=== PATIENT | female | born 1990 | race Two or more races ===

== ENCOUNTER → 2024-10-13 | Outpatient (CLI) | payer BC, SELFPAY | END | disposition home or self-care (01) | PROVIDERS: PCP Nurse Practitioner Family; Referring Provider Nurse Practitioner Family; Visit Provider Nurse Practitioner Family | DX: N39.0 Urinary tract infection, site not specified (principal); N77.1 Vaginitis, vulvitis and vulvovaginitis in diseases classified elsewhere | CPT/HCPCS: 87077; 87086; 87186 ==

== ENCOUNTER 2024-10-17 14:48 | Outpatient (AMB) | payer BC, SELFPAY ==
[2024-10-17 15:10] VITALS: BP 111/65; PULSE 95; RESP 18; TEMP 36.8; O2SAT 99; BMI 26.8
--- NOTE | 2024-10-17 15:10 | AMB.GYNCLNOT ---
Vital Signs 10/17/24 15:10 Height 1.65 m Height Method Stated Weight 73.028 kg Weight Measurement Method Standing Scale BMI 26.8 BP 111/65 Blood Pressure Source Automatic Cuff Blood Pressure Location Left Upper Arm Position Sitting Respiration 18 Pulse 95 Pulse Source Monitor Temp 98.2 F Temp Source Oral Pulse Oximetry (%) 99 Oxygen Delivery Method Room Air Allergies/Home Meds Allergies & Medications Allergies NKA* Allergy (Uncoded 10/17/24 15:11) Medication Reconciliation No Known Home Medications 10/17/24 [History Confirmed 10/17/24] Intake Visit Data Collection New Patient or Established: New Patient (never been to [facility] [place]) Reason for Visit:: Discuss tubal ligation Seen by Clinical Staff ONLY (RN/MA): No 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 Do You Feel Safe at Home: Yes Authorities Contacted: N/A PCP or OBGYN visit in last 3 months: No Hx Now: No Are you currently on any form of Control: Yes Pain Present Currently: No Pain Scale Used: John-Montero/Numerical Pain scale:: 0 Smoking Status Smoking Status: Never smoker Patrol Lady history Patrol Lady History Menstrual regularity: regular Flow: normal Monthly: Yes Age at menarche: 13 Menopausal: No Currently sexually active: Yes Questionnaires Covid-19 Vaccine Questionnaire Has patient been vacinated for Covid-19 Have you been vacinated for Covid-19: Yes PHQ-9 PHQ-2 Over the last 2 weeks, how often have you been bothered by any of the following problems? 1. Little interest or pleasure in doing things: not at all 2. Feeling down, depressed, or hopeless: not at all Total score: 0 PHQ-9 3. Trouble falling or staying asleep, or sleeping too much: Not at all 4. Feeling tired or having little energy: Not at all 5. Poor appetite or overeating: Not at all 6. Feeling bad about yourself - or that you are a failure or have let yourself or your family down: Not at all 7. Trouble concentrating on things, such as reading the newspaper or watching television: Not at all 8. Moving or speaking so slowly that other people could have noticed? - Or the opposite - being so fidgety or restless that you have been moving around a lot more than usual: not at all 9. Thoughts that you would be better off or of hurting yourself in some way: Not at all Total score: 0 If you checked off any problems, how difficult have these problems made it for you to do your work, take care of things at home, or get along with other people?: not difficult at all Source: Developed by Drs. Nehemiah Perez, Tiara Cuadra, Taiwo Sims and colleagues, with an educational maria del carmen from [employer]. Depression screen completed yes Social History Tobacco History Smoking Status: Never smoker Domestic Abuse History Do You Feel Safe at Home: Yes Past Medical History Past Medical History Have you ever been diagnosed with any of the following: History of Present Illness HPI Narrative Rona Hathaway presents to discuss tubal ligation for permanent sterilization. The patient expresses interest in the procedure and seeks comprehensive information about the process. Ms. Hathaway reports a history of a cyst on her left ovary, which she believes is no longer present as she is not experiencing any pain. She currently has an intrauterine device (IUD) in place. The patient inquires about the potential effects of the tubal ligation on her estrogen levels and hormonal balance. She has no prior history of surgeries such as C-sections. The patient demonstrates a willingness to proceed with the tubal ligation, understanding that it is a permanent and irreversible method of sterilization. She is receptive to the recommended laparoscopic salpingectomy approach and the associated benefits, including reduced risk of ectopic and decreased lifetime risk of ovarian cancer. Medical History - Ovarian cyst on left ovary (resolved) Surgical History - Ovarian cyst on left ovary (resolved) - IUD placement Medications and Supplements - IUD Social History - Occupation: Patient is employed (inferred from mention of returning to work) - Family Planning: Patient is seeking permanent sterilization via tubal ligation - Reproductive Health: Currently has an IUD Review of Systems Genitourinary: Negative for pain related to ovarian cyst. Review of Systems Review of Systems Systems Reviewed: All systems reviewed, normal except as documented Exam General Limitations: no limitations General Appearance: alert, in no apparent distress, comfortable, cooperative, healthy appearing, well developed and well groomed Head Head exam: atraumatic, normocephalic and normal inspection Chest Chest inspection: Present normal inspection and symmetric chest wall rise Abdominal Abdominal exam: Present soft and normal bowel sounds Psych Psychiatric exam: Present normal affect and normal mood Skin Skin exam: Present warm, dry, intact and normal color Assessment & Plan Diagnosis / Problem List (1) Encounter for sterilization: Status: Acute Plan Rona Hathaway, female patient, presenting to discuss tubal ligation for permanent sterilization. History of ovarian cyst on left ovary, currently asymptomatic. Has an IUD in place. Desire for permanent sterilization Assessment: Patient is seeking tubal ligation for permanent contraception. She has limited knowledge about the procedure and its effects. The recommended method is a laparoscopic bilateral salpingectomy, which involves complete removal of both fallopian tubes. This approach not only provides permanent sterilization but also reduces the risk of future ectopic and ovarian cancer. The patient's history of an ovarian cyst on the left ovary is noted, but it appears to be resolved as it is currently asymptomatic. The patient has an IUD in place, which will be removed during the surgery. Plan: - Perform laparoscopic bilateral salpingectomy for permanent sterilization - Outpatient procedure under general anesthesia - One incision in umbilicus, two on sides (each approximately 0.5 cm) - Estimated total time at hospital: 3-4 hours - Remove IUD during the procedure - Provide PM330 consent form for patient to sign - Explain 30-day mandatory waiting period before surgery - Obtain insurance authorization for the procedure - Intraoperative evaluation of ovaries, with attention to left ovary for previous cyst - Take intraoperative pictures to show patient post-procedure - Advise patient on post-operative expectations: - Day of surgery: sleepiness and soreness - Next day: begin to feel more normal - Two days post-op: can return to work and regular activities - Educate patient: - Procedure is permanent and irreversible - No effect on hormones or menstrual cycle - Reduced risk of future ovarian cancer Office Procedures OB Clinic LOC & Office Proc's Nursing/Assessment Patient Status: Established Patient OB Clinic Nursing Assessment: BP Monitoring, Medication Reconciliation, Update PMH in EMR and Vital Signs OB Clinic Coordination of Care: Complex Care and Chronic Disease 1-5, Consent,records obtained, informed consent, Education Simp Pt/Fam, Lab and Imaging orders and Staff clarify orders Established Patient Charge Established Patient Point Assignment: 115 Established Patient Point Charge: EP Level 3 (80-115)
== END 2024-10-17 15:30 | disposition home or self-care (01) ==
LOC: HODSOBC 14:48
PROVIDERS: Supervising Provider Obstetrics & Gynecology; Visit Provider Obstetrics & Gynecology
DX: Z30.2 Encounter for sterilization (principal); Z87.42 Personal history of other diseases of the female genital tract; Z97.5 Presence of (intrauterine) contraceptive device
CPT/HCPCS: 99213; G0463

== ENCOUNTER 2024-12-06 14:57 | Outpatient (AMB) | payer BC, SELFPAY ==
[2024-12-06 15:10] VITALS: BP 118/71; PULSE 72; RESP 18; TEMP 36.2; O2SAT 98; BMI 26.5
--- NOTE | 2024-12-06 15:10 | GYNCLNT_ITS ---
Vital Signs 12/06/24 15:10 Height 1.65 m Height Method Stated Weight 72.235 kg Weight Measurement Method Standing Scale BMI 26.5 BP 118/71 Blood Pressure Source Automatic Cuff Blood Pressure Location Left Upper Arm Position Sitting Respiration 18 Pulse 72 Pulse Source Monitor Temp 97.2 F Temp Source Oral Pulse Oximetry (%) 98 Oxygen Delivery Method Room Air Allergies/Home Meds Allergies & Medications Allergies No Known Allergies Allergy (Verified 12/06/24 15:11) Medication Reconciliation fluconazole 150 mg tablet 150 mg PO Q3D 2 doses #2 tabs 12/06/24 [Rx] Intake Visit Data Collection New Patient or Established: Established Patient (seen at [facility] within 3 years) Reason for Visit:: Preoperative visit for scheduled laparoscopic bilateral surgical sterilization, vaginal discharge with odor for 1 week, yellowish discharge, orangey bleeding today Seen by Clinical Staff ONLY (RN/MA): No Safety Aide Required: No Do You Feel Safe at Home: Yes Authorities Contacted: N/A PCP or OBGYN visit in last 3 months: Yes Date of Last PCP or OBGYN visit: 10/17/24 Hx Now: No Are you currently on any form of Control: No Last menstrual period: 11/17/24 Pain Present Currently: No Pain Scale Used: John-Montero/Numerical Pain scale:: 0 Smoking Status Smoking Status: Never smoker 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 Menstrual regularity: regular Flow: normal Monthly: Yes How many days does period last: 5 Age at menarche: 10 Currently 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 1. Little interest or pleasure in doing things: not at all 2. Feeling down, depressed, or hopeless: not at all Total score: 0 PHQ-9 3. Trouble falling or staying asleep, or sleeping too much: Not at all 4. Feeling tired or having little energy: Not at all 5. Poor appetite or overeating: Not at all 6. Feeling bad about yourself - or that you are a failure or have let yourself or your family down: Not at all 8. Moving or speaking so slowly that other people could have noticed? - Or the opposite - being so fidgety or restless that you have been moving around a lot more than usual: not at all 9. Thoughts that you would be better off or of hurting yourself in some way: Not at all If you checked off any problems, how difficult have these problems made it for you to do your work, take care of things at home, or get along with other people?: not difficult at all Source: Developed by Drs. Nehemiah Perez, Tiara Cuadra, Taiwo Sims and colleagues, with an educational maria del carmen from [employer]. Depression screen completed yes Social History Living Situation History Marital Status: Lives With: Family Housing: House Tobacco History Smoking Status: Never smoker Second Hand Smoke Exposure: No Alcohol History Alcohol Intake: Never Domestic Abuse History Do You Feel Safe at Home: Yes History of Present Illness HPI Narrative Rona Hathaway is a 34-year-old female presenting for a preoperative visit prior to scheduled laparoscopic bilateral salpingectomy for surgical sterilization. The patient reports experiencing vaginal discharge for approximately one week. She describes the discharge as yellowish with an associated odor. This morning, she noticed some bleeding, which she characterizes as orangey in color. The patient denies any itching associated with the discharge. In addition to the preoperative assessment, the patient sought clarification regarding her gynecological symptoms. She did not report any other associated symptoms or impact on her daily functioning related to the discharge. The patient did not mention any recent stressors or life events that may be contributing to her current condition. Review of Systems Genitourinary: Positive for vaginal discharge with odor, yellowish in color. Positive for recent orangeish vaginal bleeding. Exam General General Appearance: alert, in no apparent distress and healthy appearing Head Head exam: atraumatic Neck Neck exam: Present normal inspection and trachea midline Chest Chest inspection: Present normal inspection and symmetric chest wall rise External exam: Present normal external exam; Absent tenderness Neuro Neurological exam: Present oriented X3 Psych Psychiatric exam: Present normal affect and normal mood Office Procedures OB Clinic LOC & Office Proc's Nursing/Assessment Patient Status: Established Patient OB Clinic Nursing Assessment: Medication Reconciliation, Update PMH in EMR and Vital Signs OB Clinic Coordination of Care: Education Complex Pt/Fam, Consent,records obtained, informed consent, Lab and Imaging orders, Results/Orders obtained and Staff clarify orders Established Patient Charge Established Patient Point Assignment: 85 Established Patient Point Charge: EP Level 3 (80-115) Assessment & Plan Diagnosis / Problem List (1) Encounter for sterilization: Status: Acute (2) Acute vaginitis: Status: Acute (3) Other acute postprocedural pain: Status: Acute Plan Rona Hathaway is a 34-year-old female presenting for a preoperative visit zora r to scheduled laparoscopic bilateral salpingectomy for surgical sterilization, with a concurrent complaint of vaginal discharge for one week. Preoperative evaluation for laparoscopic bilateral salpingectomy Assessment: Patient is scheduled for laparoscopic bilateral salpingectomy (salpingectomy) tomorrow for surgical sterilization. Preoperative evaluation completed. Consent forms and insurance authorization have been verified. Patient has been contacted by the hospital and given instructions for check-in time. The procedure is expected to last 15 minutes, followed by one hour of observation before discharge. Plan: - Perform laparoscopic bilateral salpingectomy tomorrow at 8:45 AM - Provide perioperative antibiotics as per hospital protocol - Prescribe postoperative pain medication - Instruct patient on postoperative care and expectations: - Anticipate soreness for about 24 hours - Expect period-like cramping for 1-2 days postoperatively - Plan for potential return to normal activities by Wednesday (4 days postoperatively) - Follow up as needed Vaginitis Assessment: Patient reports yellowish vaginal discharge with odor for approximately one week. This morning, patient noted orange-tinged vaginal bleeding. No associated itching reported. Clinical presentation is suggestive of bacterial vaginosis with possible concurrent vaginal candidiasis. Plan: - Prescribe combination antibiotic and antifungal therapy for empiric treatment of bacterial vaginosis and vaginal candidiasis - Instruct patient to start antibiotics either today or after surgery - Anticipate additional vaginal preparation as part of surgical protocol to address current infection - Reassess symptoms at follow-up
== END 2024-12-06 15:19 | disposition home or self-care (01) ==
LOC: HODSOBC 14:57
PROVIDERS: PCP Obstetrics & Gynecology; Referring Provider Obstetrics & Gynecology; Supervising Provider Obstetrics & Gynecology; Visit Provider Obstetrics & Gynecology
DX: Z01.818 Encounter for other preprocedural examination (principal); N76.0 Acute vaginitis
CPT/HCPCS: 99213; G0463

== ENCOUNTER 2024-12-07 06:20 | Day surgery (SDC) | payer BC, SELFPAY ==
[2024-12-06 10:15] VITALS: BMI 26.6
[2024-12-06 10:57] LABS: Basophils % (Auto) 1 % (0-2.5); Eosinophils # (Auto) 0.1 Thou/mm3 (0.0-0.5); Eosinophils % (Auto) 2 % (0-10); Hematocrit 39.4 % (36.0-46.0); Immature Granulocytes % (Auto) 0 % (0-0); Immature Granulocytes Auto 0.01 Thou/mm3 (0.00-0.00); Lymphocytes # (Auto) 1.5 Thou/mm3 (1.0-4.8); Lymphocytes % (Auto) 36 % (10-50); Mean Corpuscular Hemoglobin 30.9 pg (25.0-35.0); Mean Corpuscular Volume 94 fL (80-100); Monocytes # (Auto) 0.3 Thou/mm3 (0.0-0.8); Monocytes % (Auto) 6 % (0-12); Neutrophils # (Auto) 2.3 Thou/mm3 (1.8-7.7); Neutrophils % (Auto) 55 % (37-80); Nucleated Red Blood Cell % 0 /100 WBC (0); Platelet Count 252 Thou/mm3 (140-440); RDW Standard Deviation 43.8 fL (36.4-46.3); Red Blood Count 4.21 Miln/mm3 (4.00-5.20); White Blood Count 4.2 Thou/mm3 (3.6-11.0)
[2024-12-06 11:15] LABS: Alanine Aminotransferase 20 U/L (10-49); Albumin, Serum 4.7 gm/dL (3.5-5.0); Alkaline Phosphatase 60 U/L (46-116); Anion Gap 11 (7-16); Aspartate Amino Transferase 24 U/L (0-34); BUN/Creatinine Ratio 9 Ratio (12-20); Bilirubin,Total 1.2 mg/dL (0.3-1.2); Blood Urea Nitrogen 9 mg/dL (9-23); Carbon Dioxide 28.4 mMol/L (20.0-31.0); Chloride 103 mMol/L (98-107); Estimated Creatinine Clearance 79.1 mL/min (>60); Globulin 2.3 gm/dL (2.3-3.5); Glucose 94 mg/dL (74-106); HCG,Qualitative Serum Negative; Osmolality,Calculated 281 (275-295); Potassium 4.4 mMol/L (3.4-5.1); Sodium 142 mMol/L (136-145); eGFR > 60 See Note
[2024-12-07] VITALS (9 sets, daily range): BP systolic 101–110; BP diastolic 56–66; PULSE 65–86; RESP 12–19; TEMP 36.2–37.2; O2SAT 97–100; BMI 26.2
[2024-12-07] MEDS: RINGERS LACTATED 1000 ML 1,000 ML 20 ML IV (07:44)
--- NOTE | 2024-12-07 11:57 | ESOP_ITS ---
Operative Note - COACH PROFESSIONAL ATHLETES Procedure Date of procedure: 12/07/24 Procedure Performed: Laparoscopic salpingectomy for surgical sterilization bilateral Anesthesia type: General Procedure description: Informed consent was obtained patient was taken to the operating room.? Identity was confirmed by double identifiers and she was placed on the operating table.? General anesthesia was administered and airway was secured.? Patient was now positioned in the dorsal lithotomy position in [facility].? The abdomen and perineum were prepped in the usual sterile fashion and sterile drapes were applied.? The bladder was emptied using a straight catheter.? A sponge stick was placed in the vagina for uterine manipulation.? Attention was now turned to the patient's abdomen.? A 5 mm incision was made at the base of the umbilicus using a scalpel.? Laparoscopic entry was accomplished under direct visualization using Jackrabbit laparoscopic trocar.? Once intra-abdominal placement was confirmed pneumoperitoneum was insufflated to 15 cm.? The camera was now introduced into the abdomen and a preliminary survey was performed.? The uterus and both adnexa were noted to be within normal limits.? Another overall survey of the upper abdomen was performed and no gross abnormalities were noted.? A pair of accessory ports were placed 2 cm superior and medial to the ASIS bilaterally.? The Ligasure was used to perform a salpingectomy in the usual fashion. The dissection sites were now observed to note satisfactory hemostasis.? All instruments were now withdrawn.? Pneumoperitoneum was desufflated.? The laparoscopic ports were removed.? The skin was now closed using 4-0 Monocryl in a subcuticular fashion.? The patient's skin was now cleaned, sterile dressings were applied.? Patient was undraped, and general anesthesia was reversed and she was transferred to the recovery room in a stable and awake condition. The patient tolerated the entire procedure well.? All instrument, sponge and lap counts are correct x2.? No complications were encountered. Specimen: left tube and right tube Estimated blood loss (ml): 5 Complications: none Surgical staff Operation Date: 12/07/24 08:45 Case Staff Anesthesiologist: Merrill Ro RN First Assistant: Ezequiel Worthy Diagnosis Discharge Diagnosis (1) Encounter for sterilization: Status: Acute Problem List Completed Was Problem List Reviewed/Reconciled?: Yes
--- NOTE | 2024-12-07 12:07 | SUR.PHASEI ---
1207 Patient arrived to recovery resting comfortably in [facility], on oxygen 10L via oxy mask; oral airway removed upon arrival, breathing unlabored, vital signs stable, denies pain, dressing intact to lower abdomen; dermabond, no bleeding noted, report received from Dr. Ro/Mishel JAVIER and Aurea HENSON
--- NOTE | 2024-12-07 13:00 | SUR.PHASEII ---
1300 Report given to Diane HENSON
--- NOTE | 2024-12-07 13:34 | SUR.PHASEII ---
Pt. meets criteria for discharge, VSS, no c/o pain or nausea, lap sites x3 CDI. IV discontinued without complications. Discharge instructions provided to pt. and pt.'s son, verbalized understanding. Pt. escorted to vehicle with all of belongings by staff.
== END 2024-12-07 13:34 | disposition home or self-care (01) ==
PROVIDERS: PCP Family Medicine; Referring Provider Obstetrics & Gynecology; Visit Provider Obstetrics & Gynecology
PROC: (CPT 58720; principal; 2024-12-07 08:30)
DX: Z30.2 Encounter for sterilization (principal)
CPT/HCPCS: 58661; 36415; 80053; 84703; 85025; 86850; 86900; 86901; A4217; A4649; J0131; J1100; J2250; J2405; J2704; J3010; J3490; J7120

== ENCOUNTER → 2025-01-26 | Outpatient (CLI) | payer BC, SELFPAY ==
[2025-01-27 09:10] LABS: Chlamydia trachomatis PCR Positive (Not Detect); Neisseria Gonorrhoeae DNA PCR Negative (Not Detect); Trichomonas Negative (Negative)
== END | disposition home or self-care (01) ==
PROVIDERS: PCP Student in an Organized Health Care Education/Training Program; Referring Provider Student in an Organized Health Care Education/Training Program; Visit Provider Student in an Organized Health Care Education/Training Program
DX: Z20.2 Contact with and (suspected) exposure to infections with a predominantly sexual mode of transmission (principal)
CPT/HCPCS: 87491; 87591; 87661

== ENCOUNTER 2025-01-30 09:22 | Outpatient (AMB) | payer BC, SELFPAY ==
--- NOTE | 2025-01-30 09:40 | GYNCLNT_ITS ---
Vital Signs 01/30/25 09:41 Height 1.65 m Height Method Measured Weight 72.688 kg Weight Measurement Method Standing Scale BMI 26.6 BP 107/68 Blood Pressure Source Automatic Cuff Blood Pressure Location Right Upper Arm Position Sitting Respiration 17 Pulse 76 Pulse Source Monitor Temp 98.2 F Temp Source Temporal Artery Scan Pulse Oximetry (%) 97 Oxygen Delivery Method Room Air Allergies/Home Meds Allergies & Medications Allergies No Known Allergies Allergy (Verified 01/30/25 09:41) Intake Visit Data Collection New Patient or Established: Established Patient (seen at [facility] within 3 years) Reason for Visit:: GYNE EXAM Consent obtained for Telemed Visit: No Seen by Clinical Staff ONLY (RN/MA): No 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 Do You Feel Safe at Home: Yes Authorities Contacted: N/A PCP or OBGYN visit in last 3 months: Yes Date of Last PCP or OBGYN visit: 12/07/24 Hx Now: No Are you currently on any form of Control: No Last menstrual period: 01/05/25 Pain Present Currently: No Pain Scale Used: John-Montero/Numerical Pain scale:: 0 Smoking Status Smoking Status: Never smoker Account Representative history Account Representative History Menstrual regularity: regular Flow: normal Monthly: Yes How many days does period last: 6 Age at menarche: 10 Menopausal: No Currently sexually active: Yes HEAVY MACHINERY OPERATOR: Past Medical History Past Medical History: No Hx Neurological Disorders, No Hx Cardiac Disorders, No Hx Cancer, No Hx Blood Disorders, No Hx Gastrointestinal Disorders, No Hx Renal Disease, No Hx Diabetes Mellitus Type 1 and No Hx Diabetes Mellitus Type 2 Questionnaires Covid-19 Vaccine Questionnaire Has patient been vacinated for Covid-19 Have you been vacinated for Covid-19: Yes PHQ-9 PHQ-2 Over the last 2 weeks, how often have you been bothered by any of the following problems? 1. Little interest or pleasure in doing things: not at all PHQ-9 8. Moving or speaking so slowly that other people could have noticed? - Or the opposite - being so fidgety or restless that you have been moving around a lot more than usual: not at all Source: Developed by Drs. Nehemiah Perez, Tiara Cuadra, Taiwo Sims and colleagues, with an educational maria del carmen from [employer]. Social History Living Situation History Lives With: Family Housing: House Tobacco History Smoking Status: Never smoker Second Hand Smoke Exposure: No Alcohol History Alcohol Intake: Never Domestic Abuse History Do You Feel Safe at Home: Yes History of Present Illness HPI Narrative Patient presents for IUD removal and a routine pap smear. She reports being due for a pap smear and cannot remember when her last one was performed, indicating it has been at least 3 years since her last screening. She has recently undergone a surgical procedure, which was described as straightforward with good recovery. The patient does not report any specific complaints or symptoms related to her gynecological health. She has a history of recent IUD removal. The patient's IUD was removed during this encounter. Patient reports potential spotting or bleeding. Exam Narrative Physical exam: - Gynecological: Speculum examination performed. IUD strings visible. IUD removed during examination. Pap smear obtained. General General Appearance: alert, in no apparent distress and healthy appearing Head Head exam: atraumatic Neck Neck exam: Present normal inspection and trachea midline Chest Chest inspection: Present normal inspection and symmetric chest wall rise External exam: Present normal external exam; Absent tenderness Neuro Neurological exam: Present oriented X3 Psych Psychiatric exam: Present normal affect and normal mood Office Procedures OB Clinic LOC & Office Proc's Nursing/Assessment Patient Status: Established Patient OB Clinic Nursing Assessment: Medication Reconciliation, Update PMH in EMR and Vital Signs OB Clinic Coordination of Care: Complex Care and Chronic Disease 1-5, Conse nt,records obtained, informed consent, Education Simp Pt/Fam and 4+ Authorizations needed Established Patient Charge Established Patient Point Assignment: 100 Established Patient Point Charge: EP Level 3 (80-115) In Clinic Procedures Pap Smear: Yes REMOVAL OF ANY IUD DEVICE: Yes Assessment & Plan Diagnosis / Problem List (1) Screening for cervical cancer: Status: Acute (2) Encounter for IUD removal: Status: Acute Plan IUD removal and Pap smear: - Patient due for Pap smear, last one at least 3 years ago. - IUD removal planned and executed during this visit. - Recent surgical procedure mentioned, patient recovered well. Plan: - Performed Pap smear. - Removed IUD. - Advise patient that Pap smear results will be communicated if any abnormalities are found. - Inform patient about potential bleeding or spotting following IUD removal. - Offer patient the option to obtain pictures of the recent surgical procedure from medical records.
[2025-01-30 09:41] VITALS: BP 107/68; PULSE 76; RESP 17; TEMP 36.8; O2SAT 97; BMI 26.6
== END 2025-01-30 10:17 | disposition home or self-care (01) ==
PROVIDERS: PCP Family Medicine; Referring Provider Family Medicine; Supervising Provider Obstetrics & Gynecology; Visit Provider Obstetrics & Gynecology
DX: Z30.432 Encounter for removal of intrauterine contraceptive device (principal); Z12.4 Encounter for screening for malignant neoplasm of cervix
CPT/HCPCS: 58301; 99213; Q0091; G0463

== ENCOUNTER → 2025-02-07 | Outpatient (CLI) | payer BC, SELFPAY | END | disposition home or self-care (01) | PROVIDERS: Referring Provider Student in an Organized Health Care Education/Training Program; Visit Provider Student in an Organized Health Care Education/Training Program | DX: N39.0 Urinary tract infection, site not specified (principal) | CPT/HCPCS: 87086 ==